=== PATIENT | male | born 1970 | race Caucasian/White ===

== ENCOUNTER → 2019-07-25 | Outpatient (CLI) | payer OTHER ==
[~2019-07-25] MED LIST: MIRALAX PA17 GM/Dose PO; NO HOME MEDICATIONS; NORCO 325 MG-7.1 TAB PO; PERCR 7.5 PO; PREVACID 30MG30 M1 PO; PRILOSEC 20MG20 MG PO; ZANTAC 150MG T150 MG PO; ZOLOFT 100MG100 MG PO
== END ==
LOC: COL.RAD 07:28
DX: D18.03 Hemangioma of intra-abdominal structures (principal); Z90.49 Acquired absence of other specified parts of digestive tract
CPT/HCPCS: A9585

== ENCOUNTER 2022-03-22 17:05 | Emergency (ER) | payer BC ==
[~2022-03-22] VITALS: Ht 172.7 cm; Wt 115.9 kg
[2022-03-22 17:30] VITALS: TEMP 98.4
[2022-03-22 18:13] LABS: BASO # 0.1 K/mm3 (0.0-0.2); BASO % 0.9 % (0.0-2.0); EOS # 0.1 K/mm3 (0.0-0.7); GRAN # 4.5 K/mm3 (1.4-6.5); HEMATOCRIT 46.6 % (42.0-52.0); HEMOGLOBIN 15.3 g/dl (13.5-18.0); LYMPH # 1.4 K/mm3 (1.2-3.4); LYMPH % 21.9 % (20.0-51.0); MEAN CELL VOLUME 85 fl (80.0-100.0); MEAN CORPUSCULAR HEMOGLOBIN 28 pg (27-31); MEAN CORPUSCULAR HGB CONC 33 g/dl (33.0-37.0); MONO # 0.5 K/mm3 (0.1-0.6); PLATELET COUNT 219 K/mm3 (130-400); REDCELL DISTRIBUTION WIDTH-CV 12.5 % (11.5-14.5)
[2022-03-22 18:27] LABS: BILIRUBIN,TOTAL 0.6 mg/dL (0.2-1.2); C-REACTIVE PROTEIN 0.27 mg/dL (0.00-0.50); CALCIUM 8.9 mg/dL (8.4-10.2); CREATININE, serum 1.16 mg/dL (0.72-1.25); POTASSIUM 4.3 mmol/L (3.5-4.5); TOTAL PROTEIN 7.1 gm/dL (6.2-8.1)
[2022-03-22] MEDS ORDERED: NORCO 325 MG-51 TAB PO (20:48)
[2022-03-22] MEDS ORDERED: AMOXICILLIN 8751 TAB PO (20:48)
[2022-03-22] MEDS ORDERED: ZOFRAN ODT4 MG PO (20:48)
[2022-03-22 20:54] VITALS: BP 165/114; PULSE 72
== END 2022-03-22 20:54 | disposition home or self-care (01) ==
LOC: COL.ER 17:05
PROVIDERS: Physician Assistant
DX: K57.32 Diverticulitis of large intestine without perforation or abscess without bleeding (principal); Z87.19 Personal history of other diseases of the digestive system; Z90.49 Acquired absence of other specified parts of digestive tract
CPT/HCPCS: J2270; J2405; J7030; Q9967